=== PATIENT | male | born 1990 | race Caucasian/White ===

== ENCOUNTER 2020-08-03 12:17 | Emergency (ER) | payer OTHER, SELFPAY ==
[2020-08-03 13:07] VITALS: BP 138/78; PULSE 68; RESP 16; TEMP 36.4; O2SAT 98; BMI 26.3
[2020-08-03] MEDS: FLUORESCEIN 1 MG STRIP EYE-RIGHT (14:57)
[2020-08-03] MEDS: PROPARACAINE 0.5% OPHTH SOL 2 DROPS EYE-RIGHT (14:57)
[2020-08-03] MEDS: ERYTHROMYCIN OPHTH 1 GM OINT 1 APPLIC EYE-RIGHT (14:58)
[2020-08-03 15:00] VITALS: BP 130/85; PULSE 75; RESP 18; O2SAT 98
--- NOTE | 2020-08-03 22:52 | ED_ITS ---
HPI - Eye Problem <TAQUERIA Proctor - Last Filed: 08/03/20 23:04> General Chief complaint: Eye Problems Stated complaint: poked in R eye yesterday, foggy today Time Seen by Provider: 08/03/20 13:55 Source: patient Mode of arrival: Ambulatory Limitations: no limitations History of Present Illness HPI Narrative: This is a 29-year-old male, nonsmoker, who has past medical history significant for PRK in 2016 presents to ED with right eye frequent watering, discomfort with slightly blurred vision after accidentally his young daughter poked the affected eye with her fingernail yesterday. Patient reports up-to-date tetanus immunization that he received this May. He seeks medical care at [facility] Patient does not wear glasses or contact lenses. Related Data Allergies Allergy/AdvReac Type Severity Reaction Status Date / Time No Known Drug Allergies Allergy Verified 08/03/20 13:07 Review of Systems <TAQUERIA Proctor - Last Filed: 08/03/20 23:04> Review of Systems Narrative: General: Denies fever, chills, fatigue, malaise, sweats. HEENT: See HP a Respiratory: Denies dyspnea, cough, wheezing, hemoptysis, sputum. Cardiovascular: Denies chest pain, palpitations, orthopnea, edema. Gastrointestinal: Denies nausea, vomiting, abdominal pain, diarrhea, constipation, melena. Patient History <TAQUERIA Proctor - Last Filed: 08/03/20 23:04> Medical History No significant past medical history (Acute) Surgical History History of photorefractive keratectomy (PRK) (Acute) Social History Smoking Status: Never smoker Smoking Status: Never smoker alcohol intake frequency: 0-2 drinks per day Substance Use Type: does not use Exam <TAQUERIA Proctor - Last Filed: 08/03/20 23:04> Narrative Exam Narrative: General appearance: well developed, well nourished, in no acute distress. Head: normocephalic, atraumatic, no scalp lesions, non-tender. ENT: Hearing grossly intact. Airway patent. Neck/Thyroid: neck supple, full range of motion, no visible masses or meningeal signs. No JVD, non-tender without lymphadenopathy. Skin: no suspicious rashes, lesions over visible areas. Warm and dry and appropriate color for ethnicity. Heart: no clubbing, no cyanosis, no edema. Lungs: Breathing even and unlabored. No stridor. No accessory muscles used. Able to speak in full sentences. Chest: normal shape and expansion. Abdomen: non-obese, non-distended. Neurologic: alert and oriented. Cognitive exam, MACHINIST SET UP and PNS grossly intact on informal exam. Psych: good eye contact, normal affect. Initial Vital Signs Initial Vital Signs: Vital Signs Temperature 97.6 F 08/03/20 13:07 Pulse Rate 68 08/03/20 13:07 Respiratory Rate 16 08/03/20 13:07 Blood Pressure 138/78 08/03/20 13:07 Pulse Oximetry 98 08/03/20 13:07 Eyes Alignment and Position: alignment normal Periorbital: periorbital findings normal Eyelids: eyelid abnormality right upper eyelid swelling Conjunctivae: conjunctival abnormality right conjunctival injection Sclera: sclerae normal Cornea: corneas abnormal on the right and fluorescein used (small uptake at 5 o'clock in right eye) Pupils: PERRL EOM: EOM intact bilaterally Direct ophthalmoscopy: normal light reflex Other: Visual Acuity: OD-20/30, OS-20/20, OU-20/20 IOP 15 in right eye <Yanna Ravi DO - Last Filed: 08/04/20 09:23> Initial Vital Signs Initial Vital Signs: Vital Signs Temperature 97.6 F 08/03/20 13:07 Pulse Rate 68 08/03/20 13:07 Respiratory Rate 16 08/03/20 13:07 Blood Pressure 138/78 08/03/20 13:07 Pulse Oximetry 98 08/03/20 13:07 Scores <TAQUERIA Proctor - Last Filed: 08/03/20 23:04> GCS [place] coma scale eye opening: Spontaneous [place] coma scale verbal response: Orientated [place] coma scale motor response: Obey commands [place] coma scale total score: 15 Course <TAQUERIA Proctor - Last Filed: 08/03/20 23:04> Orders Ordered: Discontinued Medications Erythromycin (Erythromycin Ophth Oint) 1 applic EYE-RIGHT NOW ONE Stop: 08/03/20 14:32 Last Admin: 08/03/20 14:58 Dose: 1 applic Documented by: BARRINGTON Fluorescein Sodium (Ful-Tracy) 1 mg EYE-RIGHT NOW ONE Stop: 08/03/20 13:56 Last Admin: 08/03/20 14:57 Dose: 1 mg Documented by: BARRINGTON Proparacaine HCl (Parcaine 0.5% Ophth Lillian) 2 drops EYE-RIGHT NOW ONE Stop: 08/03/20 13:56 Last Admin: 08/03/20 14:57 Dose: 2 drops Documented by: BARRINGTON Vital Signs Vital signs: Vital Signs - 8 hr 08/03/20 15:00 Pulse Rate 75 Respiratory Rate 18 Blood Pressure 130/85 Pulse Oximetry 98 <Yanna Ravi DO - Last Filed: 08/04/20 09:23> Orders Ordered: Discontinued Medications Erythromycin (Erythromycin Ophth Oint) 1 applic EYE-RIGHT NOW ONE Stop: 08/03/20 14:32 Last Admin: 08/03/20 14:58 Dose: 1 applic Documented by: BARRINGTON Fluorescein Sodium (Ful-Tracy) 1 mg EYE-RIGHT NOW ONE Stop: 08/03/20 13:56 Last Admin: 08/03/20 14:57 Dose: 1 mg Documented by: BARRINGTON Proparacaine HCl (Parcaine 0.5% Ophth Lillian) 2 drops EYE-RIGHT NOW ONE Stop: 08/03/20 13:56 Last Admin: 08/03/20 14:57 Dose: 2 drops Documented by: BARRINGTON Vital Signs Vital signs: Vital Signs - 8 hr 08/03/20 15:00 Pulse Rate 75 Respiratory Rate 18 Blood Pressure 130/85 Pulse Oximetry 98 MDM - Eye Problem <TAQUERIA Proctor - Last Filed: 08/03/20 23:04> Differential Diagnosis Differential diagnosis: Likely corneal abrasion, conjunctivitis and hyphema Medical Records Attestation: I reviewed the patient's medical records. MDM Narrative Medical decision making narrative: This 29-year-old male who presents to ED after his right eye was poked by young daughters finger nail yesterday with chief complain of pain, frequently tearing in right eye, and slightly blurred vision. He had PRK in 2016. Visual acuity is slightly decreased in right eye as 20/30, left 20/20, OU 20/20. Fluorescein eye exam with small take in right eye at 5:00 a.m. region and likely he has done corneal abrasion. Right eye conjunctivae is injected with slight edematous upper eyelid. Patient is afebrile within normal limits of vital sign. IOP is normal as 15. He was medicated with erythromycin ointment in ED and discharged to home with remain medication and advised to use 4 times a day for next 5 days and to follow-up with [place] sales order specialist/vocational rehabilitation consultant next 2-3 days. Tetanus immunization is up-to-date. Return precautions were discussed with patient and he verbalized understanding in agreement with the treatment plan. Discharge Plan Departure Patient Disposition: Home Clinical Impression: Corneal abrasion Qualifiers: Encounter type: initial encounter Laterality: right Qualified Code(s): S05.01XA - Injury of conjunctiva and corneal abrasion without foreign body, right eye, initial encounter Discharge Date/Time: 08/03/20 15:00 Instructions: DI for Corneal Abrasion Activity Restrictions/Additional Instructions: You have been diagnosed with [small corneal abrasion at 5:00 a.m. in right eye. Normal intra ocular pressure.]. What to do: *Take your medications as directed. Please use erythromycin ointment quarter- inch up to 4 times a day for next 5-7 days. *Follow up with your primary care provider/ophthalmology in 2-3 days, call for an appointment. Let them know you were seen in the ED and that we asked you to be seen in follow up. *Return to ED if you have any new, worsening, or concerning symptoms, such as [worsening pain, vision change, fever, increasing redness and swelling to eyeli ds, chest pain, breathing difficulty, or any acute concerns]. Referrals: [facility] [Outside] <Yanna Ravi DO - Last Filed: 08/04/20 09:23> Cosign ED Attending Cosignature Attestation: I was immediately available in the department for consultation. This documentation has been reviewed. Supervised by Yanna Ravi DO
== END 2020-08-03 15:00 | disposition home or self-care (01) ==
PROVIDERS: Emergency Provider Nurse Practitioner Family
DX: S05.01XA Injury of conjunctiva and corneal abrasion without foreign body, right eye, initial encounter (principal)
CPT/HCPCS: 99282